=== PATIENT | female | born 1935 | race Hispanic/Latino ===

== ENCOUNTER 2018-12-16 09:14 | Emergency (ER) | payer MEDICARE ==
[~2018-12-16 09:14] MED LIST: AEC81 PO; AMLO5TAB4 PO; ATEN25TA PO; CELE-84 PO; CETI10TA57 PO; CLOP75TA14 PO; DONE10TA36 PO; HYDR12.530 PO; LOSA100T58 PO; MEMA5TAB15 PO; PANT40TA25 PO; SIMV20TA6 PO; TRAM50TA4 PO
[2018-12-16 10:32] LABS: BASOPHILS % (AUTO) 0.3 % (0.0-5.0); EOSINOPHILS % (AUTO) 0.3 % (0.0-8.0); HEMATOCRIT 34.9 % (36-48); LYMPHOCYTES % (AUTO) 6.7 % (21.0-51.0); MEAN CORPUSCULAR HEMOGLOBIN 28.8 pg (27.0-33.0); MEAN CORPUSCULAR VOLUME 87.2 fL (79-99); MONOCYTES % (AUTO) 2.9 % (3.0-13.0); NEUTROPHILS % (AUTO) 89.8 % (40.0-77.0); PLATELET COUNT (AUTO) 128 K/uL (130-400); RED BLOOD CELL COUNT(AUTO) 4.01 MIL/uL (4.00-5.50); RED CELL DISTRIBUTION WIDTH 14.4 % (11.0-15.5); WHITE BLOOD COUNT (AUTO) 12.3 K/uL (4.8-10.8)
[2018-12-16 10:36] LABS: CREATININE 1.9 mg/dL (0.5-1.5); POTASSIUM 4.8 mmol/L (3.5-5.1)
[2018-12-16 10:42] LABS: ALBUMIN 2.8 g/dL (3.5-5.0); BILIRUBIN,TOTAL 0.4 mg/dL (0.2-1.0); TOTAL PROTEIN, SERUM 6.9 g/dL (6.0-8.3)
[2018-12-16 11:27] LABS: APPEARANCE,URINE Clear (CLEAR); BILIRUBIN,URINE Negative (NEGATIVE); COLOR,URINE Yellow (YELLOW); GLUCOSE, URINE (UA) TRACE mg/dL (NEGATIVE); KETONES,URINE Negative (NEGATIVE); LEUKOCYTE ESTERASE ,URINE Negative (NEGATIVE); NITRATE,URINE Negative (NEGATIVE); OCCULT BLOOD,URINE Small (NEGATIVE); PROTEIN,URINE >=1000 mg/dL (NEGATIVE); UROBILINOGEN,URINE 0.2 mg/dL (0.2-1.0)
[2018-12-16] MEDS ORDERED: CEFTRIAXONE SODIUM 1 GM ONE (11:57)
[2018-12-16] MEDS ORDERED: AZITHROMYCIN 250 MG TABLET PO ONE (11:57)
[2018-12-16 12:00] LABS: BACTERIA,URINE Rare /HPF (None Seen); WBC,URINE 0-1 /HPF (0-1)
== END 2018-12-16 14:56 | disposition home or self-care (01) ==
LOC: EDH 09:14
DX: S80.211A Abrasion, right knee, initial encounter (principal); J20.9 Acute bronchitis, unspecified; E11.9 Type 2 diabetes mellitus without complications; I10 Essential (primary) hypertension; I25.10 Atherosclerotic heart disease of native coronary artery without angina pectoris; E78.5 Hyperlipidemia, unspecified; Z95.1 Presence of aortocoronary bypass graft; Z79.4 Long term (current) use of insulin; Z79.82 Long term (current) use of aspirin; Z87.891 Personal history of nicotine dependence; W18.39XA Other fall on same level, initial encounter; Y93.89 Activity, other specified; Y92.89 Other specified places as the place of occurrence of the external cause; Y99.8 Other external cause status
CPT/HCPCS: 36415; 70450; 71045; 72125; 73502; 73700; 80053; 81001; 82550; 82948; 84484; 85025; 93005; 96374; 99284; J0696

== ENCOUNTER → 2019-06-28 | Outpatient (CLI) | payer MEDICARE ==
[~2019-06-28] MED LIST changes: +SIMV-43 PO; -SIMV20TA6 PO
== END | disposition home or self-care (01) ==
LOC: SHCH 09:01
PROVIDERS: ATTEND Internal Medicine Cardiovascular Disease
DX: I73.9 Peripheral vascular disease, unspecified (principal); I65.23 Occlusion and stenosis of bilateral carotid arteries; R09.89 Other specified symptoms and signs involving the circulatory and respiratory systems
CPT/HCPCS: 93880; 93925

== ENCOUNTER → 2019-07-05 | Outpatient (CLI) | payer MEDICARE ==
[~2019-07-05] MED LIST changes: -SIMV-43 PO; +SIMV20TA6 PO
== END | disposition home or self-care (01) ==
LOC: SHCH 09:14
PROVIDERS: ATTEND Internal Medicine Cardiovascular Disease
DX: I05.1 Rheumatic mitral insufficiency (principal)
CPT/HCPCS: 93306